=== PATIENT | male | born 2000 | race Caucasian/White ===

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

== ENCOUNTER 2018-02-01 03:17 | Emergency (ER) | payer BC ==
[~2018-02-01] VITALS: Ht 180.3 cm; Wt 65.5 kg
[~2018-02-01 03:17] MED LIST changes: +AUGMENTIN875 MG PO; +MOTRIN800 MG PO
[2018-02-01] MEDS ORDERED: TAMIFLU75 MG PO (03:33)
[2018-02-01] MEDS ORDERED: GUAIFENESIN AC473 ML PO (03:33)
[2018-02-01 03:50] VITALS: BP 106/65
== END 2018-02-01 03:51 | disposition home or self-care (01) ==
LOC: EME 03:17
DX: B34.9 Viral infection, unspecified (principal); J02.9 Acute pharyngitis, unspecified; R05 Cough; R11.2 Nausea with vomiting, unspecified; F17.200 Nicotine dependence, unspecified, uncomplicated
CPT/HCPCS: 99281; 99283

== ENCOUNTER 2018-02-20 21:52 | Emergency (ER) | payer BC ==
[~2018-02-20] VITALS: Ht 180.3 cm; Wt 66.2 kg
[~2018-02-20 21:52] MED LIST changes: +GUAIFENESIN AC473 ML PO; +TAMIFLU75 MG PO
[2018-02-20 22:53] LABS: HEMATOCRIT 41.7 % (38.0-50.0); MCH 29.4 PG (29.0-34.0); MCHC 33.6 G/DL (30.0-36.0); MCV 87.6 FL (86-99); PLATELET COUNT 306 K/uL (156-360); RBC DIS.WIDTH-CV 12.6 % (11.8-14.6); RBC DIS.WIDTH-SD 40.5 % (39-53); RED BLOOD COUNT 4.76 M/uL (4.00-5.50); WHITE BLOOD COUNT 6.2 K/uL (4.1-10.2)
[2018-02-20 23:02] LABS: ALBUMIN 4.3 g/dL (3.2-4.8); CHLORIDE 107 mEq/L (99-109); POTASSIUM 4.2 mEq/L (3.7-5.4); SODIUM 143 mEq/L (136-147)
[2018-02-20 23:05] LABS: GLUCOSE 117 mg/dL (70-99); TOTAL PROTEIN 6.7 g/dL (6.4-8.3)
[2018-02-20 23:06] LABS: TOTAL BILIRUBIN 1.4 mg/dL (0.0-1.0)
[2018-02-20 23:08] LABS: ALKALINE PHOSPHATASE 57 IU/L (3-129); CREATININE 0.8 mg/dL (0.6-1.3); GFR ESTIMATE (CALCULATED) > 59 mL/min/ (58.99-99999)
[2018-02-20 23:09] LABS: UREA NITROGEN (BUN) 9 mg/dL (9-23)
[2018-02-20 23:10] LABS: AST (GOT) 21 IU/L (2-34)
[2018-02-20 23:11] LABS: ALT (GPT) 13 IU/L (3-49)
[2018-02-20 23:12] LABS: LIPASE 25 U/L (1.0-51.0)
[2018-02-21 01:30] VITALS: BP 121/69
== END 2018-02-21 01:30 | disposition home or self-care (01) ==
LOC: EME 21:52
DX: R10.31 Right lower quadrant pain (principal); R11.2 Nausea with vomiting, unspecified; F31.9 Bipolar disorder, unspecified; F17.200 Nicotine dependence, unspecified, uncomplicated
CPT/HCPCS: 74177; 80053; 81003; 83690; 85027; 99281; 99284; J1885; J7030

== ENCOUNTER 2018-02-25 10:40 | Inpatient (IN) | payer BC, OTHER ==
[~2018-02-25] VITALS: Ht 180.3 cm; Wt 65.1 kg
[2018-02-25 14:36] LABS: HEMATOCRIT 41.3 % (38.0-50.0); HEMOGLOBIN 14.1 G/DL (12.5-16.6); MCH 29.3 PG (29.0-34.0); MCHC 34.1 G/DL (30.0-36.0); MCV 85.9 FL (86-99); PLATELET COUNT 302 K/uL (156-360); RBC DIS.WIDTH-CV 12.7 % (11.8-14.6); RBC DIS.WIDTH-SD 39.6 % (39-53); RED BLOOD COUNT 4.81 M/uL (4.00-5.50); WHITE BLOOD COUNT 12.2 K/uL (4.1-10.2)
[2018-02-25 14:48] LABS: ALBUMIN 4.6 g/dL (3.2-4.8); CHLORIDE 104 mEq/L (99-109); POTASSIUM 4.3 mEq/L (3.7-5.4); SODIUM 142 mEq/L (136-147)
[2018-02-25 14:50] LABS: GLUCOSE 105 mg/dL (70-99)
[2018-02-25 14:53] LABS: SERUM ETHYL ALCOHOL < 10 mg/dL; TOTAL BILIRUBIN 0.7 mg/dL (0.0-1.0)
[2018-02-25 14:54] LABS: ALKALINE PHOSPHATASE 54 IU/L (3-129); CREATININE 0.8 mg/dL (0.6-1.3); GFR ESTIMATE (CALCULATED) > 59 mL/min/ (58.99-99999)
[2018-02-25 14:55] LABS: AST (GOT) 19 IU/L (2-34); UREA NITROGEN (BUN) 15 mg/dL (9-23)
[2018-02-25 14:57] LABS: ALT (GPT) 12 IU/L (3-49)
[2018-02-25] MEDS ORDERED: ADDERALL20 MG PO (16:14)
[2018-02-25 16:20] LABS: APPEARANCE SL.HAZY ((CLEAR)); BILIRUBIN NEGATIVE; BLOOD NEGATIVE; COLOR YELLOW ((YELLOW)); GLUCOSE (STRIP) NEGATIVE; KETONES NEGATIVE; LEUKOCYTES NEGATIVE; NITRITE NEGATIVE; PROTEIN (STRIP) NEGATIVE; SPECIFIC GRAVITY 1.024 (1.000-1.030); UROBILINOGEN 0.2 MG/DL (0.2-1.0)
[2018-02-25 16:29] LABS: AMPHETAMINE NEGATIVE (500 ng/mL); BARBITURATES NEGATIVE (200 ng/mL); BENZODIAZEPINES NEGATIVE (150 ng/mL); BUPRENORPHINE NEGATIVE (10 ng/mL); COCAINE NEGATIVE (150 ng/mL); METHADONE NEGATIVE (200 ng/mL); METHAMPHETAMINE NEGATIVE (500 ng/mL); OPIATES (MORPHINE) NEGATIVE (100 ng/mL); OXYCODONE PRESUMPTIVE POSITIVE (100 ng/mL); PHENCYCLIDINE NEGATIVE (25 ng/mL); PROPOXYPHENE NEGATIVE (300 ng/mL); THC CANNABINOIDS NEGATIVE (50 ng/mL); TRICYCLIC ANTIDEPRESSANTS NEGATIVE (300 ng/mL)
[2018-02-25 16:33] VITALS: BP 140/90
[2018-02-25 16:37] VITALS: BP 140/90
[2018-02-25 16:45] LABS: BACTERIA RARE /HPF; EPITHELIAL CELLS NONE SEEN /HPF; MUCUS NONE SEEN /LPF; RED BLOOD CELLS NONE SEEN /HPF (0-5); UCUL ADDED? NO; WHITE BLOOD CELLS NONE SEEN /HPF (0-5)
[2018-02-25 16:46] LABS: AMORPHOUS PHOSPHATE CRYSTALS FEW
[2018-02-26 08:16] VITALS: BP 127/58
[2018-02-26 15:55] VITALS: BP 111/56
[2018-02-27 07:51] VITALS: BP 127/66
== END 2018-02-27 12:45 | disposition home or self-care (01) | DRG 897 ==
LOC: EME 10:40 → EDOF 15:42 → 1WEST 15:42 → ENRESERV 16:15 → 1WEST 16:23
PROVIDERS: Emergency Medicine
DX: F11.23 Opioid dependence with withdrawal (principal); F17.200 Nicotine dependence, unspecified, uncomplicated
CPT/HCPCS: 80053; 81003; 85027; 90839; 99281; 99284; G0480; J0572; Q0169; Q0177